=== PATIENT | female | born 1955 | race Two or more races ===

== ENCOUNTER 2017-01-03 13:10 | Emergency (ER) | payer MEDICARE, OTHER | END 2017-01-03 13:57 | disposition left against medical advice (07) | LOC: ER 13:18 | DX: M25.569 Pain in unspecified knee (principal); Z53.21 Procedure and treatment not carried out due to patient leaving prior to being seen by health care provider ==

== ENCOUNTER 2022-06-26 22:32 | Emergency (ER) | payer MEDICARE, MEDICAID ==
[~2022-06-26] VITALS: Ht 167.6 cm; Wt 72.7 kg
[2022-06-26] MEDS ORDERED: HYDROcodone-ACET 10/325MG TAB PO ONE (23:45)
[2022-06-27] MEDS ORDERED: MORPHINE SULFATE 4 MG/ML SYR/VIAL IV ONE (03:45)
[2022-06-27] MEDS ORDERED: ONDANSETRON HCL 4 MG/2 ML VIAL IV ONE (03:45)
[2022-06-27] MEDS ORDERED: TRAM-300 PO (03:58)
[2022-06-27 05:41] VITALS: BP 146/62
== END 2022-06-27 06:02 | disposition home or self-care (01) ==
LOC: EDBD 22:32 → EDUNIT# 22:32 → ER 22:32
DX: S52.501A Unspecified fracture of the lower end of right radius, initial encounter for closed fracture (principal); S00.31XA Abrasion of nose, initial encounter; Z98.890 Other specified postprocedural states; W18.09XA Striking against other object with subsequent fall, initial encounter; Y93.89 Activity, other specified; Y92.009 Unspecified place in unspecified non-institutional (private) residence as the place of occurrence of the external cause; Y99.8 Other external cause status
CPT/HCPCS: 25605; 70450; 70486; 72125; 73090; 96374; 96375; 99284; J2270; J2405

== ENCOUNTER 2023-12-09 13:49 | Inpatient (IN) | payer OTHER, MEDICAID ==
[~2023-12-09] VITALS: Ht 167.6 cm; Wt 75.0 kg
[~2023-12-09 13:49] MED LIST: TRAM-300 PO
[2023-12-09 15:46] LABS: Basophils # (auto) 0.1 10 ^3/uL (0-0.2); Basophils % (auto) 0.9 % (0.0-2.0); Eosinophils # (auto) 0.3 10 ^3/uL (0-0.8); Eosinophils % (auto) 4.9 % (0.0-7.0); Hematocrit 43.5 % (36.0-46.0); Hemoglobin 14.6 g/dL (12.2-16.2); Lymphocytes # (auto) 1.3 10 ^3/uL (0.4-5.4); Lymphocytes % (auto) 21.7 % (10.0-50.0); Mean Corpuscular Hemoglobin 30.1 pg (28.0-32.0); Mean Corpuscular Hgb Conc. 33.4 g/dL (32.0-36.0); Monocytes # (auto) 0.5 10 ^3/uL (0-1.3); Neutrophils # (auto) 3.7 10 ^3/uL (1.6-8.6); Neutrophils % (auto) 63.5 % (37.0-80.0); Nucleated Red Blood Cells % 0.2 %; Red Blood Cells 4.84 10^6/uL (4.0-5.20); Red Cell Distribution Width 14.7 % (11.8-14.3); White Blood Cell 5.9 10^3/uL (4.4-10.8)
[2023-12-09 15:54] LABS: Alanine Aminotransferase 23 U/L (7-40); Albumin 4.2 g/dL (3.2-4.8); Alkaline Phosphatase 96 U/L (46-116); Anion Gap 5 (5-15); Aspartate Aminotransferase 19 U/L (13-40); BUN/Creatinine Ratio 11.1 (10.0-20.0); Blood Urea Nitrogen 10 mg/dL (9-23); Calcium 9.4 mg/dL (8.7-10.4); Carbon Dioxide 30 mmol/L (20-30); Chloride 103 mmol/L (98-107); Glucose 159 mg/dL (74-106); Potassium 4.1 mmol/L (3.5-5.1); Sodium 138 mmol/L (136-145)
[2023-12-09 15:55] LABS: Bilirubin, Total 0.7 mg/dL (0.2-1.0); Total Protein 6.7 g/dL (5.7-8.2)
[2023-12-09 16:59] LABS: Blood Alcohol < 3.0 mg/dL (<10)
[2023-12-09] MEDS ORDERED: NITROGLYCERIN 0.4 MG SL TAB SL PRN (17:15)
[2023-12-09] MEDS ORDERED: MORPHINE SULFATE INJ 2 MG/ml SYRG IV PRN (17:15)
[2023-12-09] MEDS ORDERED: METOCLOPRAMIDE HCL 5MG/ml INJ 2ml VIAL IV PRN (17:15)
[2023-12-09] MEDS ORDERED: DOCUSATE SOD 100 MG CAP PO PRN (17:15)
[2023-12-09] MEDS ORDERED: LORazepam 0.5 MG TAB PO PRN (17:15)
[2023-12-09 17:38] LABS: Triglycerides 106 mg/dL (< 150)
[2023-12-09 17:39] LABS: LDL Cholesterol 100 mg/dL (< 100)
[2023-12-09 17:40] LABS: Cholesterol 154 mg/dL (< 200); HDL Cholesterol 38 mg/dL (40-59)
[2023-12-09 17:50] VITALS: PULSE 77; RESP 18; O2SAT 96
[2023-12-09] MEDS: THIAMINE 100mg/ml INJ (200mg/2ml VIAL) IV ONE (18:27)
[2023-12-09] MEDS: SODIUM CHLORIDE 0.9% 1,000 ML IV ONE (18:27)
[2023-12-09] MEDS: ACETAMINOPHEN 325 MG TAB PO PRN (18:28)
[2023-12-09] MEDS ORDERED: DEXTROSE (50%) 50ML SYRG IV PRN (19:00)
[2023-12-09 19:50] LABS: Magnesium 1.9 mg/dL (1.6-2.6)
[2023-12-09] MEDS: HYDROcodone-ACET 5/325MG TAB PO PRN (19:55)
[2023-12-09 20:15] LABS: INR 1.09 (0.9-1.15); Partial Thromboplastin Time 28.1 SEC (24.5-34.5); Prothrombin Time 11.5 sec (9.3-11.8)
[2023-12-09] MEDS: InsuLIN REG 1unit/0.01ml Soln (100units/ml) SC SCH (22:00)
[2023-12-09] MEDS: ACCU-CHEK COMFORT CURVE STRIP VI SCH (22:17)
[2023-12-10] VITALS (7 sets, daily range): BP systolic 115–165; BP diastolic 57–88; PULSE 66–88; RESP 18–20; TEMP 97.5–98; O2SAT 92–99
[2023-12-10] MEDS ORDERED: GABA-1250 PO (00:45)
[2023-12-10] MEDS ORDERED: PNEUMOCOCCAL VACC POLYS 25 MCG/0.5 ML VIAL IM ONE (00:45)
[2023-12-10] MEDS: MORPHINE SULFATE INJ 2 MG/ml SYRG IV PRN (01:00)
[2023-12-10 06:20] LABS: Urine Bacteria None Seen /hpf (None Seen)
[2023-12-10 06:35] LABS: Alanine Aminotransferase 18 U/L (7-40); Albumin 3.8 g/dL (3.2-4.8); Alkaline Phosphatase 81 U/L (46-116); Anion Gap 5 (5-15); Aspartate Aminotransferase 24 U/L (13-40); BUN/Creatinine Ratio 8.5 (10.0-20.0); Blood Urea Nitrogen 7 mg/dL (9-23); Calcium 8.8 mg/dL (8.5-10.1); Carbon Dioxide 28 mmol/L (20-30); Chloride 105 mmol/L (98-107); Glucose 115 mg/dL (74-106); Potassium 3.7 mmol/L (3.5-5.1); Sodium 138 mmol/L (136-145)
[2023-12-10 06:36] LABS: Phosphorus 3.4 mg/dL (2.4-5.1); Total Protein 6.3 g/dL (5.7-8.2)
[2023-12-10 06:49] LABS: Urine Blood Negative /uL (Negative); Urine Clarity Clear (Clear); Urine Color Yellow (Yellow); Urine Mucus FEW (None Seen); Urine Protein, UAD Negative (Negative); Urine Urobilinogen Normal (Negative); Urine WBC 1 /hpf (0 - 5)
[2023-12-10 07:02] LABS: Amphetamine Screen, Urine Pos (NEGATIVE); Benzodiazephine Screen, Urine Neg (NEGATIVE)
[2023-12-10 07:04] LABS: Barbiturate Scree,Urine Neg (NEGATIVE); Cannabinoid Screen, Urine Pos (NEGATIVE); Cocaine Screen, Urine Neg (NEGATIVE); Opiate Scree,Urine Pos (NEGATIVE); Phencyclidine Screen, Urine Neg (NEGATIVE)
[2023-12-10 07:17] LABS: Magnesium 1.9 mg/dL (1.6-2.6)
[2023-12-10 07:39] LABS: Basophils # (auto) 0.1 10 ^3/uL (0-0.2); Basophils % (auto) 0.9 % (0.0-2.0); Eosinophils # (auto) 0.3 10 ^3/uL (0-0.8); Eosinophils % (auto) 5.2 % (0.0-7.0); Hematocrit 39.9 % (36.0-46.0); Hemoglobin 13.5 g/dL (12.2-16.2); Lymphocytes # (auto) 1.4 10 ^3/uL (0.4-5.4); Lymphocytes % (auto) 22.7 % (10.0-50.0); Mean Corpuscular Hemoglobin 30.4 pg (28.0-32.0); Mean Corpuscular Hgb Conc. 33.9 g/dL (32.0-36.0); Mean Corpuscular Volume 89.8 fL (80.0-100.0); Monocytes # (auto) 0.6 10 ^3/uL (0-1.3); Neutrophils # (auto) 3.8 10 ^3/uL (1.6-8.6); Neutrophils % (auto) 62.2 % (37.0-80.0); Nucleated Red Blood Cells % 0.2 %; Red Blood Cells 4.44 10^6/uL (4.0-5.20); Red Cell Distribution Width 14.6 % (11.8-14.3); White Blood Cell 6.2 10^3/uL (4.4-10.8)
[2023-12-10] MEDS: NICOTINE 14 MG/24HR TOPICAL PATCH TD SCH (10:36)
[2023-12-10] MEDS ORDERED: LIDOCAINE 5% TOPICAL PATCH TOP ONE (11:00)
[2023-12-10] MEDS: FOLIC ACID 1 MG, MULTIPLE VITAMIN 10 ML, MAGNESIUM SULF SDV 50% 8 MEQ, THIAMINE INJ 100... INJ SCH (18:00)
[2023-12-10] MEDS ORDERED: ERGOCALCIFEROL 50,000 UNIT(1.25MG) CAP PO SCH (20:30)
[2023-12-11] MEDS ORDERED: LIDOCAINE 5% TOPICAL PATCH TOP SCH (10:00)
[2023-12-11 10:56] LABS: Hepatitis B Surface Antigen Negative (Negative)
[2023-12-11 10:58] LABS: Hepatitis B Surface Antigen Negative (Negative)
[2023-12-11 11:40] LABS: Hepatitis C Antibody Reactive (Negative)
[2023-12-11 12:25] LABS: Hepatitis A Ab IgM Negative
[2023-12-11 12:26] LABS: Hepatitis B Core IgM Negative
[2023-12-11 12:33] LABS: Hepatitis C Antibody Reactive (Negative)
== END 2023-12-10 18:45 | disposition left against medical advice (07) | DRG 917 ==
LOC: ER 13:49 → TELE 17:10 → TELE-WESTW 23:51 → WEST WING 12-10 18:42
PROVIDERS: ADMIT Internal Medicine; ATTEND Emergency Medicine
DX: T43.621A Poisoning by amphetamines, accidental (unintentional), initial encounter (principal); G92.8 Other toxic encephalopathy; S06.9X9A Unspecified intracranial injury with loss of consciousness of unspecified duration, initial encounter; T40.2X1A Poisoning by other opioids, accidental (unintentional), initial encounter; E78.5 Hyperlipidemia, unspecified; K74.60 Unspecified cirrhosis of liver; F10.10 Alcohol abuse, uncomplicated; F12.10 Cannabis abuse, uncomplicated; F03.90 Unspecified dementia, unspecified severity, without behavioral disturbance, psychotic disturbance, mood disturbance, and anxiety; F17.200 Nicotine dependence, unspecified, uncomplicated; Z53.29 Procedure and treatment not carried out because of patient's decision for other reasons; R73.03 Prediabetes; W18.39XA Other fall on same level, initial encounter; Y90.9 Presence of alcohol in blood, level not specified; Y93.89 Activity, other specified; Y92.89 Other specified places as the place of occurrence of the external cause; Y99.8 Other external cause status; F19.10 Other psychoactive substance abuse, uncomplicated
CPT/HCPCS: 36415; 70450; 71045; 73562; 76700; 80053; 80061; 80074; 80307; 80320; 81001; 82140; 82306; 82607; 82962; 83036; 83605; 83690; 83735; 84100; 84443; 84484; 85025; 85610; 85730; 86803; 87040; 87086; 87340; 93005; 93306; 96361; 96374; 97163; G0378